=== PATIENT | female | born 1930 | race Caucasian/White ===

== ENCOUNTER → 2016-08-02 | Outpatient (CLI) | payer OTHER | LOC: CIMAGING 13:17 | PROVIDERS: ATTEND Family Medicine | DX: R91.1 Solitary pulmonary nodule (principal) | CPT/HCPCS: 71250-PO ==

== ENCOUNTER → 2016-10-12 | Outpatient (CLI) | payer OTHER | LOC: BRMIMAGING 14:23 | PROVIDERS: ATTEND Family Medicine | DX: Z13.820 Encounter for screening for osteoporosis (principal); M85.80 Other specified disorders of bone density and structure, unspecified site; Z78.0 Asymptomatic menopausal state; Z79.899 Other long term (current) drug therapy ==

== ENCOUNTER → 2017-02-22 | Outpatient (CLI) | payer OTHER | LOC: CIMAGING 13:16 | PROVIDERS: ATTEND Family Medicine | DX: R91.8 Other nonspecific abnormal finding of lung field (principal) | CPT/HCPCS: 71250-PO ==

== ENCOUNTER 2017-03-07 10:23 | Emergency (ER) | payer OTHER ==
[2017-03-07 10:35] VITALS: O2SAT 94
--- NOTE | 2017-03-07 10:55 | EDPHY ---
H & P Time Seen by Provider: 03/07/17 10:44 HPI/ROS: CHIEF COMPLAINT: Right lower extremity swelling HISTORY OF PRESENT ILLNESS: The patient is an 86-year-old female who presents emergency department with ongoing right lower extremity swelling. Patient states 2-3 weeks ago she dropped [place]. She had mild swelling in both legs. Her left leg is now normal. Her right leg has persistently been swollen. She states that he gets more uncomfortable throughout the day. At night she noticed increased redness. This improved by morning. She has no fevers or chills. No history of heart failure. No chest pain or shortness of breath. "I have no other symptoms" REVIEW OF SYSTEMS: My complete review of systems is negative except as mentioned in the HPI. Past Medical/Surgical History: Includes kidney cancer, diverticulitis, bowel obstruction, skin cancer, C diff Past surgical history: Includes laminectomy, tonsillectomy, spinal fusion, colostomy, colostomy takedown, nephrectomy Social history: The patient does not smoke Smoking Status: Former smoker Physical Exam: Vitals noted. Hypertensive 179/94 GENERAL: Well-appearing, in no acute distress, alert. HEENT: Eyes normal to inspection, normal pharynx, no signs of dehydration. NECK: No thyromegaly, no lymphadenopathy, supple. RESPIRATORY: Clear to auscultation bilaterally, no rales, rhonchi or wheezing. CVS: Regular rate and rhythm, no rubs, murmurs, or gallops. ABDOMEN: Soft, nontender, nondistended, no organomegaly. BACK: Normal to inspection, no CVA tenderness. SKIN: Normal color, no rash, warm, dry. No pallor. EXTREMITIES: mild right lower extremity edema. No palpable cord. No Homans sign. Mild tenderness palpation over her right calf and anterior ferrari. There is no significant redness. No streaking up the leg. Neurovascular intact distally. NEURO/PSYCH: Alert and oriented, normal mood and affect, normal motor sensory exam. Constitutional: Initial Vital Signs Temperature (C) 36.8 C 03/07/17 10:32 Heart Rate 78 03/07/17 10:32 Respiratory Rate 18 03/07/17 10:32 Blood Pressure 179/94 H 03/07/17 10:32 O2 Sat (%) 94 03/07/17 10:32 O2 Delivery Mode Humidified Allergies/Adverse Reactions: bacitracin [From Neosporin] Allergy (Mild, Verified 03/07/17 10:36) bacitracin zinc [From Neosporin] Allergy (Mild, Verified 03/07/17 10:36) gramicidin D [From Neosporin] Allergy (Mild, Verified 03/07/17 10:36) neomycin sulfate [From Neosporin] Allergy (Mild, Verified 03/07/17 10:36) polymyxin B [From Neosporin] Allergy (Mild, Verified 03/07/17 10:36) polymyxin B sulfate [From Neosporin] Allergy (Mild, Verified 03/07/17 10:36) ciprofloxacin [From Cipro] Allergy (Verified 03/07/17 10:36) ciprofloxacin HCl [From Cipro] Allergy (Verified 03/07/17 10:36) loratadine [From Claritin] Allergy (Verified 03/07/17 10:36) meperidine HCl [From Demerol] Allergy (Verified 03/07/17 10:36) Home Medications: Medication Instructions Recorded Aspirin [Aspirin 81mg (*)] 81 mg PO DAILY 03/15/15 Calcium Carb W/Vit D [Calcium Carb 500 mg PO DAILY 03/15/15 W/Vit D 500/200 (*)] Cholecalciferol Vit D3 [Vitamin D3 1,000 units PO DAILY 03/15/15 (*)] Fluticasone Nasal [Flonase Nasal 1 sprays NASAL HS PRN 03/15/15 [place]] Metoprolol Succinate Xr [Toprol Xl 50 mg PO DAILY 03/15/15 50 mg (*)] Multivitamins [Multivitamin (*)] 1 each PO DAILY 03/15/15 Vitamin B Complex [Super B-50 1 each PO DAILY 03/15/15 Complex] Atorvastatin Calcium [Lipitor 20 20 mg PO DAILY 03/16/15 mg (*)] Enoxaparin [Lovenox 80 MG (*)] 80 mg SQ BID 3 Days syr 03/07/17 Warfarin Sodium [Coumadin 5MG (*)] 5 mg PO DAILY16 7 Days tab 03/07/17 Medical Decision Making - Diagnostics Imaging Results: Imaging Impressions Extremity Venous Study 03/07/17 10:51 Impression: DVT in the peroneal veins. Findings called to the [facility] [place] ED 03/07/2017 at 11:55. ED Course/Re-evaluation: In the emergency department I discussed possible etiologies with the patient. I answered all her questions. She consented to ultrasound imaging. Right lower extremity ultrasound: Please refer the dictated report by the radiologist. The patient has a positive DVT. I discussed the results with the patient. I answered all her questions. The patient was given Lovenox subcu. Laboratory studies were ordered. I paged hospital service. 1228: I discussed case with the hospitalist service. Dr. Scott felt this could be treated as an outpatient. I subsequently called the patient's primary care physician Dr. Hebert. I spoke with the on-call physician. She recommended discharging the patient on lovenox bid x 3 days and coumadin 5 mg daily. I discussed this with the patient. She would prefer not to be admitted. She understands the risks and benefits. She is given warnings prior to leaving. She was instructed on use of the medication. She will return with worsening symptoms. She will call Dr. Hebert's ffice today to make an appointment and be seen in next 3 days. Differential Diagnosis: My differential includes but is not to DVT, CHF, arterial occlusion, cellulitis , abscess, hematoma, muscle strain - Data Points Laboratory Results: Laboratory Results 03/07/17 12:25 03/07/17 12:25 03/07/17 03/07/17 03/07/17 12:25 12:25 12:25 WBC 8.41 10^3/uL 10^3/uL (3.80-9.50) RBC 4.73 10^6/uL 10^6/uL (4.18-5.33) Hgb 14.3 g/dL g/dL (12.6-16.3) Hct 43.5 % % (38.0-47.0) MCV 92.0 fL fL (81.5-99.8) MCH 30.2 pg pg (27.9-34.1) MCHC 32.9 g/dL g/dL (32.4-36.7) RDW 13.3 % % (11.5-15.2) Plt Count 352 10^3/uL 10^3/uL (150-400) MPV 9.4 fL fL (8.7-11.7) Neut % (Auto) 70.8 % % (39.3-74.2) Lymph % (Auto) 20.9 % % (15.0-45.0) [place] % (Auto) 6.9 % % (4.5-13.0) Eos % (Auto) 0.6 % % (0.6-7.6) Baso % (Auto) 0.6 % % (0.3-1.7) Nucleat RBC Rel Count 0.0 % % (0.0-0.2) Absolute Neuts (auto) 5.95 10^3/uL 10^3/uL (1.70-6.50) Absolute Lymphs (auto) 1.76 10^3/uL 10^3/uL (1.00-3.00) Absolute Monos (auto) 0.58 10^3/uL 10^3/uL (0.30-0.80) Absolute Eos (auto) 0.05 10^3/uL 10^3/uL (0.03-0.40) Absolute Basos (auto) 0.05 10^3/uL 10^3/uL (0.02-0.10) Absolute Nucleated RBC 0.00 10^3/uL 10^3/uL (0-0.01) Immature Gran % 0.2 % % (0.0-1.1) Immature Gran # 0.02 10^3/uL 10^3/uL (0.00-0.10) PT 12.3 SEC SEC (12.0-15.0) INR 0.94 (0.83-1.16) APTT 28.9 SEC SEC (23.0-38.0) Sodium 139 mEq/L mEq/L (134-144) Potassium 4.8 mEq/L mEq/L (3.5-5.2) Chloride 103 mEq/L mEq/L (97-110) Carbon Dioxide 22 mEq/l mEq/l (22-31) Anion Gap 14 mEq/L mEq/L (8-16) BUN 23 mg/dL mg/dL (7-23) Creatinine 1.2 mg/dL H mg/dL (0.6-1.0) Estimated GFR 43 Glucose 85 mg/dL mg/dL (70-100) Calcium 10.2 mg/dL mg/dL (8.5-10.4) Medications Given: Discontinued Medications Enoxaparin Sodium (Lovenox) 80 mg SC EDNOW ONE Stop: 03/07/17 12:08 Last Admin: 03/07/17 12:27 Dose: 80 mg Departure - Departure Disposition: Home, Routine, Self-Care Clinical Impression: Extremity edema, Edema of right lower extremity DVT (deep venous thrombosis) Qualifiers: DVT location: lower extremity Affected thrombotic vein of extremity: other lower extremity vein Chronicity: acute Laterality: right Qualified Code(s): I82.491 - Acute embolism and thrombosis of other specified deep vein of right lower extremity Condition: Good Instructions: Deep Venous Thrombosis (ED) Additional Instructions: You are diagnosed with a DVT on ultrasound. This requires anticoagulation. You been given 2 medications (Lovenox and Coumadin). Take these medications until you follow up with Dr. Hebert. You should call Dr. Hebert's office today to make an appointment in the next 2-3 days. If you have increasing pain shortness of breath, or any other concerns return to the emergency department. Referrals: Maria Elena Hebert MD [Primary Care Provider] - 2-3 days, call for appt. Prescriptions: Enoxaparin [Lovenox 80 MG (*)] 80 mg SQ BID 3 Days syr Warfarin Sodium [Coumadin 5MG (*)] 5 mg PO DAILY16 7 Days tab
[2017-03-07] MEDS ORDERED: ENOXAPARIN 80 MG/0.8 ML SYR SC ONE (12:07)
[2017-03-07 12:37] LABS: % IMMATURE GRANULYOCYTES 0.2 % (0.0-1.1); ABSOLUTE IMMATURE GRANULOCYTES 0.02 10^3/uL (0.00-0.10); ADD DIFF? NO; ADD MORPH? NO; ADD SCAN? NO; ATYPICAL LYMPHOCYTE FLAG 0 (0-99); FRAGMENT RBC FLAG 0 (0-99); HEMATOCRIT 43.5 % (38.0-47.0); HEMOGLOBIN 14.3 g/dL (12.6-16.3); LEFT SHIFT FLG 0 (0-99); LIPEMIA HEMOLYSIS FLAG 80 (0-99); MEAN CELL HEMOGLOBIN 30.2 pg (27.9-34.1); MEAN CELL HEMOGLOBIN CONCENTR. 32.9 g/dL (32.4-36.7); MEAN PLATELET VOLUME 9.4 fL (8.7-11.7); PLATELET CLUMPS FLAG 10 (0-99); PLATELET COUNT 352 10^3/uL (150-400); RED BLOOD CELL COUNT 4.73 10^6/uL (4.18-5.33); RED CELL DISTRIBUTION WIDTH 13.3 % (11.5-15.2)
[2017-03-07 12:45] LABS: INR 0.94 (0.83-1.16); PROTIME(PATIENT) 12.3 SEC (12.0-15.0)
[2017-03-07 12:46] LABS: APTT 28.9 SEC (23.0-38.0)
[2017-03-07 12:47] LABS: CALCIUM 10.2 mg/dL (8.5-10.4); CREATININE 1.2 mg/dL (0.6-1.0); POTASSIUM 4.8 mEq/L (3.5-5.2)
[2017-03-07 13:29] VITALS: BP 174/70; PULSE 54; RESP 20; TEMP 97.7
== END 2017-03-07 13:26 | disposition home or self-care (01) ==
LOC: CED 10:23
DX: I82.491 Acute embolism and thrombosis of other specified deep vein of right lower extremity (principal); Z79.01 Long term (current) use of anticoagulants; Z79.82 Long term (current) use of aspirin; Z85.528 Personal history of other malignant neoplasm of kidney; Z85.828 Personal history of other malignant neoplasm of skin; Z87.891 Personal history of nicotine dependence
CPT/HCPCS: 93971; 96372; 99285; J1650; 80048-PO; 85025-PO; 85610-PO; 85730-PO

== ENCOUNTER → 2017-11-22 | Outpatient (CLI) | payer OTHER | LOC: CIMAGING 12:50 | PROVIDERS: ATTEND Family Medicine | DX: Z12.31 Encounter for screening mammogram for malignant neoplasm of breast (principal) ==